=== PATIENT | male | born 1930 | race Caucasian/White ===

== ENCOUNTER 2020-11-06 08:29 | Inpatient (IN) | payer BC, OTHER ==
[~2020-11-06] VITALS: Ht 172.7 cm; Wt 106.7 kg
[2020-11-06] VITALS (15 sets, daily range): BP systolic 80–120; BP diastolic 38–59
[~2020-11-06 08:29] MED LIST: ACTOS 30 MG TAB30 M1 PO; ASPIRIN EC325 M1 PO; FLOMAX0.4 MG PO; LIPITOR40 MG PO; OMEPRAZOLE40 MG PO; PROSCAR 5MG TABL5 MG PO; VITAMIN D310 MCG PO
[2020-11-06 14:21] LABS: HCO3 21.5 mmol/L (22.0-26.0); PCO2 45.1 mmHg (35.0-45.0); PO2 89.9 mmHg (80.0-100.0); pH 7.296 (7.360-7.450)
[2020-11-06 14:57] LABS: HEMATOCRIT 44.3 % (42.0-52.0); HEMOGLOBIN 14.3 gm/dL (14.0-18.0); MCH 30.3 pg (26.0-34.0); MCHC 32.2 g/dL (28.0-37.0); MCV 94.1 fL (80.0-100.0); PLATELET COUNT 108 thou/uL (150-400); RBC 4.71 mil/uL (4.50-6.00); RDW 13.9 % (10.5-14.5); WBC 2.8 thou/uL (4.0-11.0)
[2020-11-06 15:13] LABS: CALCIUM 9.5 mg/dL (8.5-10.1); CREATININE 1.8 mg/dL (0.7-1.3); POTASSIUM 4.2 mmol/L (3.5-5.1); TOTAL BILIRUBIN 1.9 mg/dL (0.2-1.0); TOTAL PROTEIN 6.6 g/dL (6.4-8.2)
[2020-11-06 15:25] LABS: ABSOLUTE NEUTROPHILS 2.4 thou/uL (1.4-8.2)
[2020-11-06 15:26] LABS: POLYCHROMASIA SLIGHT; TEARDROPS FEW
--- NOTE | 2020-11-06 16:29 | NUR ---
PATIENT ARRIVED ON UNIT AT 1531. PATIENT'S BELONGINGS IDENTIFIED AND ACCOUNTED FOR.
--- NOTE | 2020-11-06 16:49 | 2DMMODE ---
[facility] [place] [address] 2 D/M-MODE ECHOCARDIOGRAM Name: ABDULLAHI HUNT Room #: 244-P ADM IN M.R.#: [id number] Admission: 11/06/20 Attend Phys: López Ortiz Discharge: Date of : [birth year] Report #: [id number] THIS REPORT FOR: cc: Daniel Camilo MD, Robert MD Lammoglia, Francisco J. MD ~ APPROVED REPORT Study performed: 11/06/2020 16:12:38 EXAM: Comprehensive 2D, Doppler, and color-flow Echocardiogram Patient Location: ICU Room #: 244 Status: on-call BSA: 2.17 HR: 108 bpm Rhythm: Tachycardia Indications Tachycardia, hypoxia. 2D Dimensions RVDd: 30.97 mm IVSd: 12.53 (7-11mm) LVOT Diam: 23.08 (18-24mm) LVDd: 48.88 mm PWd: 13.08 (7-11mm) Ascending Ao: 38.39 (22-36mm) LVDs: 31.57 (25-40mm) Left Atrium: 40.36 (27-40mm) Aortic Root: 41.65 mm Volumes Left Atrial Volume (Systole) Single Plane 4CH: 63.90 mL Single Plane 2CH: 70.27 mL LA ESV Index: 33.00 mL/m2 Aortic Valve AoV Peak Tejas.: 1.46 m/s AO Peak Gr.: 8.57 mmHg LVOT Max P.66 mmHg LVOT Max V: 1.08 m/s MILAN Vmax: 3.08 cm2 Pulmonary Valve PV Peak Tejas.: 1.21 m/s PV Peak Gr.: 5.83 mmHg [facility] [address] [place] [address] 2 D/M-MODE ECHOCARDIOGRAM Name: ABDULLAHI HUNT Room #: 244-P [facility] IN [facility].#: [id number] Admission: 11/06/20 Attend Phys: López Del Valle Discharge: Date of : [birth year] Report #: [id number] Tricuspid Valve TR Peak Tejas.: 3.06 m/s RAP Estimate: 5.00 mmHg TR Peak Gr.: 37.47 mmHg PA Pressure: 42.00 mmHg Left Ventricle The left ventricle is normal size. There is normal LV segmental wall motion. Mild concentric left ventricular hypertrophy. Left ventricular systolic function is normal. LVEF is 60%. This study is not technically sufficient to allow evaluation of the LV diastolic function. Right Ventricle The right ventricle is normal size. The right ventricular systolic function is normal. Atria The left atrium size is normal. The right atrium size is normal. Aortic Valve The aortic valve is normal in structure. Trace aortic regurgitation. There is no aortic valvular stenosis. Mitral Valve The mitral valve is normal in structure. There is no mitral valve regurgitation noted. No evidence of mitral valve stenosis. Tricuspid Valve The tricuspid valve is normal in structure. Trace tricuspid regurgitation. Estimated PAP is 40-45mmHg. Pulmonic Valve The pulmonary valve is normal in structure. There is no pulmonic valvular regurgitation. Great Vessels Aortic root is mildly dilated (4.2cm). Ascending aorta is borderline dilated. IVC is normal in size and collapses >50% with inspiration. Pericardium There is no pericardial effusion. <Conclusion> [facility] [address] [place] [address] 2 D/M-MODE ECHOCARDIOGRAM Name: ABDULLAHI HUNT Room #: 244-[facility] IN M.R.#: [id number] Admission: 11/06/20 Attend Phys: López Del Valle Discharge: Date of : [birth year] Report #: [id number] The left ventricle is normal size. Mild concentric left ventricular hypertrophy. LVEF is 60%. The right ventricle is normal size. The left atrium size is normal. The aortic valve is normal in structure. Trace aortic regurgitation. The mitral valve is normal in structure. The tricuspid valve is normal in structure. Trace tricuspid regurgitation. Estimated PAP is 40-45mmHg. The pulmonary valve is normal in structure. Aortic root is mildly dilated (4.2cm). Ascending aorta is borderline dilated. There is no pericardial effusion. <ELECTRONICALLY SIGNED> By: Terry Elizabeth MD 11/06/20 1649 48 48 Terry Elizabeth MD /INF
[2020-11-07] VITALS (20 sets, daily range): BP systolic 95–116; BP diastolic 44–65
--- NOTE | 2020-11-07 02:12 | NUR ---
ASSUMED PT CARE AT 1900, PT IS SLEEPY, AWAKE DURING ASSESSMENTS, ALERT ABD ORIENTED, ABLE TO VOICE NEEDS, ASSESSMENTS CHARTED, MEDS GIVEN PER AUG, PTS BP IN THE 80S SYSTOLIC, 500 ML OF NS GIVEN, BP BETTER IN THE 100S SYSTOLIC, DENIES PAIN, REMAINS ON BIPAP, TOLERATING WELL, 02SATS REMAINS STABLE, REMAINS AFEBRILE, NO NEEDS AT THIS TIME, WILL CONTINUE TO MONITOR AND FOLLOW POC
[2020-11-07 04:19] LABS: HEMATOCRIT 35.9 % (42.0-52.0); MCH 30.5 pg (26.0-34.0); MCHC 32.7 g/dL (28.0-37.0); MCV 93.2 fL (80.0-100.0); PLATELET COUNT 95 thou/uL (150-400); RBC 3.85 mil/uL (4.50-6.00); RDW 13.9 % (10.5-14.5)
[2020-11-07 04:30] LABS: HEMOGLOBIN 11.7 gm/dL (14.0-18.0); WBC 27.6 thou/uL (4.0-11.0)
[2020-11-07 04:43] LABS: ALBUMIN 2.5 g/dL (3.4-5.0); CALCIUM 8.8 mg/dL (8.5-10.1); CREATININE 1.8 mg/dL (0.7-1.3); MAGNESIUM 1.9 mg/dL (1.8-2.4); PHOSPHORUS 2.5 mg/dL (2.5-4.9); POTASSIUM 3.8 mmol/L (3.5-5.1); TOTAL BILIRUBIN 1.6 mg/dL (0.2-1.0); TOTAL PROTEIN 5.7 g/dL (6.4-8.2)
[2020-11-07 05:25] LABS: ABSOLUTE NEUTROPHILS 25.1 thou/uL (1.4-8.2); METAMYELOCYTES 2 %; PLATELET ESTIMATE DECREASED
[2020-11-07] MEDS ORDERED: ACTOS 30 MG TAB30 M1 PO (10:00)
--- NOTE | 2020-11-07 14:10 | NUR ---
DR. TORRES CALLED, RE TRANSFER ORDERS. UPDATE GIVEN. DR. MOLINA ROUNDED AND ORTHOSTATIC BPS GOOD.
--- NOTE | 2020-11-07 15:55 | NUR ---
TRANSFER VIA ON . ALL BELONGINGS WITH PT. DENIES PAIN OR SOB.
--- NOTE | 2020-11-07 18:47 | NUR ---
RECEIVED PT TRANSFER FROM ICU. PT AT THE BEDSIDE. PT IS AXOX4, PLEASANT. VSS, AFEBRILE, SR ON MONITOR. PT IS ON 4L VIA NC, WITH BIPAP HS. PT HAS NGUYEN; UP X1 WITH GAIT BELT AND WALKER TO TOILET FOR BM. DID BEDSIDE EDUCATION WITH PT AND ON PLAN OF CARE PT PROGRESSES TOWARDS D/C GOALS. PT AND COMMUNICATED UNDERSTANDING. FALL PRECAUTIONS IN PLACE. NO CONCERNS AT THIS TIME.
[2020-11-08 00:45] VITALS: BP 133/60
[2020-11-08 04:24] LABS: HEMATOCRIT 33.3 % (42.0-52.0); HEMOGLOBIN 10.9 gm/dL (14.0-18.0); MCH 30.5 pg (26.0-34.0); MCHC 32.9 g/dL (28.0-37.0); MCV 92.7 fL (80.0-100.0); PLATELET COUNT 89 thou/uL (150-400); RBC 3.59 mil/uL (4.50-6.00); RDW 13.8 % (10.5-14.5); WBC 27.8 thou/uL (4.0-11.0)
[2020-11-08 04:45] VITALS: BP 126/69
[2020-11-08 04:50] LABS: ALBUMIN 2.7 g/dL (3.4-5.0); CHOLESTEROL 95 mg/dL (<200); DIRECT BILIRUBIN 0.3 mg/dL (<0.1-0.2); HDL CHOLESTEROL 42 mg/dL (>40); LDL CHOLESTEROL 45 mg/dL (<100); LIPASE 69 U/L (73-393); MAGNESIUM 2.2 mg/dL (1.8-2.4); PHOSPHORUS 2.7 mg/dL (2.5-4.9); SGOT 106 U/L (15-37); SGPT 143 U/L (30-65); TC:HDL 2.3 Ratio (Not establshd); TOTAL BILIRUBIN 0.6 mg/dL (0.2-1.0); TOTAL PROTEIN 6.1 g/dL (6.4-8.2); TRIGLYCERIDE 43 mg/dL (<150); VLDL 9 mg/dL (<40)
--- NOTE | 2020-11-08 04:50 | NUR ---
ASSUMED PT CARE AT CHANGE OF SHIFT, ASSESSMENTS CHARTED, DENIES PAIN OR SOB, BIPAP AT NIGHT, TOLERATING WELL, ADEQUATE URINE OUTPUT, MEDS GIVEN PER MAR, NO NEEDS AT THIS TIME, WILL CONTINUE TO MONITOR AND FOLLOW POC
[2020-11-08 04:51] LABS: SERUM ASSESSMENT Clear
[2020-11-08 07:30] VITALS: BP 173/739
[2020-11-08 09:49] LABS: ABSOLUTE NEUTROPHILS 25.9 thou/uL (1.4-8.2)
[2020-11-08 09:50] LABS: ANISOCYTOSIS 1+
[2020-11-08 11:30] VITALS: BP 119/61
[2020-11-08 11:46] LABS: ALBUMIN 2.8 g/dL (3.4-5.0); ANION GAP 9 mmol/L (7-16); BUN 41 mg/dL (7-18); CALCIUM 10.3 mg/dL (8.5-10.1); CHLORIDE 107 mmol/L (98-107); CO2 23 mmol/L (21-32); CREATININE 1.5 mg/dL (0.7-1.3); GLUCOSE 279 mg/dL (74-106); MAGNESIUM 2.2 mg/dL (1.8-2.4); POTASSIUM 4.3 mmol/L (3.5-5.1); SGOT 86 U/L (15-37); SGPT 135 U/L (16-63); SODIUM 139 mmol/L (136-145); TOTAL BILIRUBIN 0.6 mg/dL (0.2-1.0); TOTAL PROTEIN 6.3 g/dL (6.4-8.2); TROPONIN-I <0.06 ng/mL (<0.06)
--- NOTE | 2020-11-08 14:57 | EKG ---
[place] [address] [facility]: [place] [address] ELECTROCARDIOGRAM REPORT Name: ABDULLAHI HUNT Room #: 204-P ADM IN M.R.#: [id number] Admission: 11/06/20 Attend Phys: López Ortiz Discharge: Date of : [birth year] Report #: [id number] [facility] Test Date: 2020-11-06 Test Time: 14:07:13 Pat Name: ABDULLAHI HUNT Department: Room: 204 Gender: M Social Media Assistant: SUNNY : 1930 Requested By: Anne Kruse Order Number: [id number] MD: Karsten Calix Measurements Intervals [place] Rate: 129 P: -48 KS: 78 QRS: -55 QRSD: 122 T: 3 QT: 391 QTc: 573 Interpretive Statements Sinus or ectopic atrial tachycardia Right bundle branch block No previous ECG available for comparison Electronically Signed On 11-08-2020 14:57:25 CDT by Karsten Calix [email or web address] <ELECTRONICALLY SIGNED> By: Karsten Calix MD, [facility] 11/08/20 1457 1407 1407 Karsten Calix MD, FACC /EPI
--- NOTE | 2020-11-08 14:58 | EKG ---
[place] [address] [facility] [place] [address] ELECTROCARDIOGRAM REPORT Name: ABDULLAHI HUNT Room #: 204-P ADM IN M.R.#: [id number] Admission: 11/06/20 Attend Phys: López Ortiz Discharge: Date of : [birth year] Report #: [id number] [facility] Test Date: 2020-11-06 Test Time: 14:28:31 Pat Name: ABDULLAHI HUNT Department: Room: 204 Gender: M Email Engineer: MOLLY : 1930 Requested By: López Miller Order Number: [id number] MD: Karsten Calix Measurements Intervals [place] Rate: 107 P: 151 FL: 224 QRS: -31 QRSD: 133 T: 5 QT: 416 QTc: 555 Interpretive Statements Sinus or ectopic atrial tachycardia Prolonged FL interval Left anterior hemiblock Right bundle branch block Compared to ECG 11/06/2020 14:07:13 Heart rate has slowed Electronically Signed On 11-08-2020 14:58:49 CDT by Karsten Calix [email or web address] <ELECTRONICALLY SIGNED> By: Karsten Calix MD, [facility] 11/08/20 1458 1428 142 Karsten Calix MD, [facility] /EPI
--- NOTE | 2020-11-08 14:59 | EKG ---
[place] [address] [facility] [place] [place] [address] ELECTROCARDIOGRAM REPORT Name: ABDULLAHI HUNT Room #: 204-P ADM IN M.R.#: [id number] Admission: 11/06/20 Attend Phys: López Ortiz Discharge: Date of : [birth year] Report #: [id number] [facility] Test Date: 2020-11-06 Test Time: 14:29:52 Pat Name: ABDULLAHI HUNT Department: Room: 204 Gender: M Electrical Superintendent: MOLLY : 1930 Requested By: López Miller Order Number: [id number] MD: Karsten Calix Measurements Intervals [place] Rate: 107 P: 188 IA: 220 QRS: -33 QRSD: 125 T: 3 QT: 362 QTc: 483 Interpretive Statements Sinus or ectopic atrial tachycardia Prolonged [place] interval Right bundle branch block Possible inferior and lateral infarcts, age indeterminate Compared to ECG 11/06/2020 14:28:31 Inferior Q waves are more prominent Electronically Signed On 11-08-2020 14:59:29 CDT by Karsten Calix [email or web address] <ELECTRONICALLY SIGNED> By: Karsten Calix MD, [facility] 11/08/20 1459 1429 1429 Karsten Calix MD, [facility] /EPI
--- NOTE | 2020-11-08 15:11 | EKG ---
[place] [address] [facility] [place] [address] ELECTROCARDIOGRAM REPORT Name: ABDULLAHI HUNT Room #: 204-P ADM IN M.R.#: [id number] Admission: 11/06/20 Attend Phys: López Ortiz Discharge: Date of : [birth year] Report #: [id number] [facility] Test Date: 2020-11-07 Test Time: 09:39:13 Pat Name: ABDULLAHI HUNT Department: Room: 204 Gender: M Civil Engineering Director: : 1930 Requested By: Juve Perez Order Number: [id number] MD: Karsten Calix Measurements Intervals [place] Rate: 94 P: 10 NM: 242 QRS: -37 QRSD: 135 T: -13 QT: 367 QTc: 459 Interpretive Statements Sinus rhythm Prolonged NM interval Right bundle branch block Inferior infarct, age indeterminate Compared to ECG 11/06/2020 14:29:52 No significant changes Electronically Signed On 11-08-2020 15:11:09 CDT by Karsten Calix [email or web address] <ELECTRONICALLY SIGNED> By: Karsten Calix MD, [facility] 11/08/20 1511 8 Karsten Calix MD, [facility] /EPI
[2020-11-08 15:50] VITALS: BP 129/66
[2020-11-08 19:44] VITALS: BP 135/71
[2020-11-09 04:00] VITALS: BP 125/62
[2020-11-09 04:44] LABS: HEMATOCRIT 32.9 % (42.0-52.0); HEMOGLOBIN 10.8 gm/dL (14.0-18.0); MCH 30.4 pg (26.0-34.0); MCHC 32.7 g/dL (28.0-37.0); MCV 92.9 fL (80.0-100.0); PLATELET COUNT 88 thou/uL (150-400); RBC 3.54 mil/uL (4.50-6.00); RDW 13.7 % (10.5-14.5)
--- NOTE | 2020-11-09 04:50 | NUR ---
SLEPT PART OF SHIFT IN BED WITH BIPAP ON. TOLERATING BIPAP. DENIES COMPLAINTS OF PAIN OR SHORTNESS OF AIR. WORKING ON GOALS AND PLAN OF CARE FOR NOC. NPO FOR POSSIBLE STRESS TEST THIS AM. CONTINUE TO ASSES CLOSELY.
[2020-11-09 05:00] LABS: ALBUMIN 2.6 g/dL (3.4-5.0); CALCIUM 10.1 mg/dL (8.5-10.1); CREATININE 1.3 mg/dL (0.7-1.3); MAGNESIUM 2.4 mg/dL (1.8-2.4); POTASSIUM 4.4 mmol/L (3.5-5.1); TOTAL BILIRUBIN 0.5 mg/dL (0.2-1.0)
[2020-11-09 06:02] LABS: ABSOLUTE NEUTROPHILS 23.9 thou/uL (1.4-8.2); PLATELET ESTIMATE DECREASED
[2020-11-09 07:53] VITALS: BP 126/62
--- NOTE | 2020-11-09 08:24 | NUR ---
CM S/W PT WHO STATED HE LIVES HOME WITH SPOUSE, PT IS RETIRED AND IS EMPLOYEED. PT IS INDEPENDENT W/ADLS, PREPARES HIS OWN BREAKFAST AND LUNCH AND COOKS DINNER. PT USE HOME O2 @ 2L. PT IS ON IV ABX. PT DENIES HX WITH HOME HEALTH. CM TO CONT TO FOLLOW.
[2020-11-09 12:05] VITALS: BP 141/80
--- NOTE | 2020-11-09 12:48 | NUR ---
High nutrition screen for wt loss and poor appetite. S/P ERCP/choledocholithiasis. Pt/ report his wt loss 17 lb was due to isolation year for COVID. reports was planning more of the meals. Pt obese with BMI 36. Anxious to eat lunch, stated hungry. Possible discharge home today. Low nutrition risk
--- NOTE | 2020-11-09 17:35 | NUR ---
PATIENT COMPLETED STRESS TEST THIS SHIFT,SEE CARDIOLOGY PROGRESS NOTES. PATIENT'S WOULD LIKE PATIENT TO DC TO HOME. PATIENT AND PATIENT'S HAS BEEN TALKED TO IN GREAT DETAIL ABOUT POC AND THAT PATIENT IS BEING TREATED WITH ABX. DECREASED FROM 4L NC TO 2L NC PER RESPIRATORY, VSS. AMBULATED SEVERAL TIMES TO BATHROOM, VOIDING WITHOUT ISSUES POST CATHETER REMOVAL.
[2020-11-09 20:00] VITALS: BP 155/80
[2020-11-09 21:37] LABS: HEMATOCRIT 33.4 % (42.0-52.0)
--- NOTE | 2020-11-10 03:53 | NUR ---
UPON INITIAL ASSESSMENT PATIENT HAD COMPLAINTS OF NAUSEA AND INCREASED GAS. NURSE OBTAINED PRN ORDERS FOR ANTI NAUSEA MEDICATIONS. NURSE BROUGHT BACK TO ROOM DUE TO PATIENT VOMITING WHAT PERCEIVED BLOOD. VOMIT APPEARED DARK RED IN COLOR. CALL PLACED TO GI DOCTOR WITH ORDERS RECEIVED FOR STAT H&H WHICH CAME BACK NORMAL. NURSE AND PATIENT RELUCTANT TO PLACE PATIENT ON BIPAP DUE TO VOMITING, AND PATIENTS BREATHING APPEARS STABLE EVIDENCED BY ASSESSMENTS AND CONTINUOUS SATURATION MONITORING. MIDNIGHT INSULIN HELD DUE TO PATIENTS CURRENT ABILITY TO CONSUME PO FOODS/FLUIDS. NURSE TO CONTINUE TO ASSESS.
[2020-11-10 04:00] VITALS: BP 114/70
[2020-11-10 06:01] LABS: HEMATOCRIT 25.9 % (42.0-52.0); MCH 30.2 pg (26.0-34.0); MCHC 32.4 g/dL (28.0-37.0); MCV 93.2 fL (80.0-100.0); PLATELET COUNT 108 thou/uL (150-400); RBC 2.77 mil/uL (4.50-6.00); RDW 14.1 % (10.5-14.5); WBC 22.1 thou/uL (4.0-11.0)
[2020-11-10 06:05] LABS: HEMOGLOBIN 8.4 gm/dL (14.0-18.0)
[2020-11-10 08:35] VITALS: BP 119/62
--- NOTE | 2020-11-10 08:48 | NUR ---
0840- RN PAGED GI DUE TO 2 LARGE DARK BLOODY STOOLS. AWAITING CALL BACK. AT SHIFT CHANGE THIS RN ASSISTED 911 EMERGENCY SERVICES DISPATCHER RN AT 0700 IN CLEANING UP FIRST BOWEL MOVEMENT THAT CONTAINED DARK BLOODY STOOL. AT THAT TIME NIGHT RN CALLED GI AND MADE THEM AWARE OF DARK BLOODY STOOL AND PT WAS MADE STRICT NPO AT THIS TIME WITH PLAN TO POSSIBLY SCOPE TODAY. PT'S HERE AND WAS MADE AWARE OF PT'S 3 DARK BLOODY STOOLS. WILL CHANGE MONITORING BLOOD PRESSURE FROM Q4 HOURS TO HOURLY AND WILL CONTINUE TO CLOSELY MONITOR PT. PT'S VSS AT THIS TIME.
[2020-11-10 08:59] LABS: ABSOLUTE NEUTROPHILS 19.9 thou/uL (1.4-8.2); ANISOCYTOSIS 1+; METAMYELOCYTES 3 %; MYELOCYTES 1 %
[2020-11-10 09:48] VITALS: BP 116/52
--- NOTE | 2020-11-10 10:15 | NUR ---
1010- pt to gi lab for egd. consent signed and on chart. accompanied pt with gi transport.
[2020-11-10 13:35] VITALS: BP 110/60
--- NOTE | 2020-11-10 14:50 | NUR ---
1430- RN SPOKE WITH DR SANTOS AFTER PT RETURNED FROM EGD. WAS INFORMED THAT PT HAS HAD 2 MORE DARK STOOLS POST PRECEDURE. IS AWARE. ORDER FOR H&H GIVEN TO BE DRAWN AT 2100 TONIGHT AND 0500 IN AM. PT STARTED ON CLEAR LIQUID DIET ORDERED.
[2020-11-10 20:52] VITALS: BP 123/58
[2020-11-10 21:30] LABS: HEMATOCRIT 24.1 % (42.0-52.0); HEMOGLOBIN 7.8 gm/dL (14.0-18.0)
[2020-11-11 04:44] LABS: HEMATOCRIT 21.7 % (42.0-52.0); HEMOGLOBIN 7.1 gm/dL (14.0-18.0)
[2020-11-11 04:45] VITALS: BP 133/77
--- NOTE | 2020-11-11 08:15 | P ---
[facility] [place] [address] PROCEDURE REPORT Name: ABDULLAHI HUNT Room #: 204-P ADM IN M.R.#: [id number] Admission: 11/06/20 Attend Phys: Osmany Ceballos MD Discharge: Date of : [birth year] Report #: [id number] THIS REPORT FOR: cc: Daniel Camilo MD, Robert MD [place],López East MD ~ DOC #: [id number] cc: MD López Tomlinson MD DATE OF SERVICE: 11/06/2020 PROCEDURE PERFORMED: ERCP with sphincterotomy, stone removal and stent placement. HISTORY OF PRESENT ILLNESS: The patient is an 89-year-old male who was seen by myself in the office for the first time on 09/17/2020 for elevated liver function tests and abnormal ultrasound. He has a history of intermittent elevated liver function tests over the years. He had a previous cholecystectomy in 1995. He had previous episodes of diverticulitis in the past. He has had intermittent fevers and chills at times, thought to be due to diverticulitis. He underwent an ultrasound of the abdomen on 09/08/2020, showed fatty liver changes, previous cholecystectomy changes. Bile ducts were dilated with the extrahepatic duct being 21 mm in diameter. Also noted were internal echoes and possible shadowing. This may be secondary to common bile duct stone. We, therefore, decided to proceed with an MRCP of the abdomen done on 10/06/2020. This showed multiple signal voids throughout the dilated extrahepatic bile duct extending to the level of the confluence of the right and left intrahepatic bile ducts consistent with retained bile duct stones. Associated intrahepatic bile duct dilation most prominent on the left lobe of the liver, apparent beading of the intrahepatic ducts, left more prominent. The right raises a possibility of superimposed sclerosing cholangitis. I had a long discussion with the patient and his family in the office again on 10/13/2020 and we discussed possibly proceeding with an ERCP. He is here today for ERCP scheduled as an outpatient. DESCRIPTION OF PROCEDURE: The risks and benefits of the procedure were explained to the patient and his family, those risks including but not limited to bleeding, perforation and the risk of sedation as well as the potential risk for post-ERCP pancreatitis. He understood these risks and gave informed consent. The procedure was performed in the operating room under general anesthesia. The patient was given 2 grams of Ancef prior to the procedure as well as 50 mg indomethacin rectal suppository. Next, using a standard Olympus ERCP side-viewing scope, the scope was placed in the patient's mouth and advanced under direct vision through the esophagus, stomach and into the second portion of the duodenum, at which point the major papilla was identified. Just above the papilla was a diverticulum, but did not involve directly the major [address] [address] PROCEDURE REPORT Name: ABDULLAHI HUNT Room #: 204-P [facility] IN M.R.#: [id number] Admission: 11/06/20 Attend Phys: Osmany Ceballos MD Discharge: Date of : [birth year] Report #: [id number] papilla. Next, using a Azam-Cook 0.025 DomeTip sphincterotome catheter, the common bile duct was cannulated without difficulty and a cholangiogram was obtained. There were multiple large filling defects consistent with common bile duct stones within a very dilated common bile duct at approximately 20 mm. There was approximately 15-20 plus stones noted packed throughout the duct. The intrahepatic ducts were slightly dilated as well. At this point, I performed a large sphincterotomy without difficulty. A guidewire was advanced into the intrahepatic ducts. I spent approximately an hour and a half with a combination of balloon and basket catheters trying to retrieve all the stones. Because of the size of the stones and how they were packed in, it was very difficult. I was able to crush some of the stones and remove some of the stones, however, approximately 70% of the stones remained after this period of time. I even extended the sphincterotomy at one point. It was obvious at this point, I was not going to be able to clear the entire duct at this time. I therefore proceeded with placing two 5-[place] 7 cm double pigtail stents without difficulty. There was good drainage noted from the stents at this point. There was also good drainage noted from the contrast dye from the common bile duct. At this point, the scope was then withdrawn and the procedure terminated. The patient tolerated the procedure well. IMPRESSION: Very dilated common bile duct at 20 mm with numerous stones noted throughout the entire duct as described above despite sphincterotomy and multiple attempts with removal with balloon and wire basket, only a portion of the stones were able to be removed today. RECOMMENDATIONS: 1. Observe the patient post-procedure. 2. Would recommend starting ursodiol in the near future. Repeating ERCP in several months, at that time, hopefully with the stents and ____, this will help break down part of the stones and make them softer and will be hopefully more able to be removed at that time. Thank you for allowing me to participate in his care. ADDENDUM: The patient tolerated the procedure well, however, in the recovery room began having chills and desaturation and will explain further details in HPI on consult. The patient will be admitted for further workup. López Miller MD [facility] [address] [place] [address] PROCEDURE REPORT Name: ABDULLAHI HUNT Room #: 204-P ADM IN M.R.#: [id number] Admission: 11/06/20 Attend Phys: Osmany Ceballos MD Discharge: Date of : [birth year] Report #: [id number] <ELECTRONICALLY SIGNED> By: López Miller MD 11/11/20 0815 1357 37 López Miller MD /nt
--- NOTE | 2020-11-11 08:15 | HC ---
[facility] [address] CONSULTATION Name: ABDULLAHI HUNT Room #: 204-P ADM IN M.R.#: [id number] Admission: 11/06/20 Attend Phys: Osmany Ceballos MD Discharge: Date of : [birth year] Report #: [id number] THIS REPORT FOR: cc: Daniel Camilo MD, Robert MD McElhin[place],López East MD ~ DOC #: [id number] cc: Larissa Eden MD, Al Jackson MD, Juve Perez MD, Daniel Miller MD HISTORY OF PRESENT ILLNESS: The patient is an 89-year-old male who was evaluated by myself for the first time in the office on 09/17/2020, that time was being seen for elevated liver function tests as well as abnormal ultrasound of the abdomen. He also has been having intermittent abdominal pain at times. He has had previous histories of fevers and chills, thought to be secondary to diverticulitis, has been treated typically one to two times per year with Cipro, which resolved his symptoms. He had a previous cholecystectomy in 1995. He underwent an ultrasound of the abdomen on 09/08/2020, which showed gallbladder being surgically absent. The common bile duct was dilated at 21 mm. Internal echoes in the extrahepatic ducts were seen. Questionable shadowing. These may be stones within the bile duct. I had a long discussion with the patient and his family that day and we decided to proceed with an MRI of the abdomen, which was performed on 10/06/2020. This showed again a significantly dilated common bile duct with multiple filling defects consistent with common bile duct stones as well as apparent beading of the intrahepatic ducts left more prominent than right, raising the possibility of superimposed colitis and cholangitis. I had a long discussion with the patient again and his family on 10/13/2020 regarding options including possible ERCP, which she presented for today as an outpatient. Prior to the procedure, was denying any abdominal pain. No fevers or chills. He underwent ERCP today in the OR under general anesthesia. He was given 2 grams of Ancef prior to the procedure as well as 50 mg rectal indomethacin suppository. ERCP showed multiple filling defects, and a significantly dilated common bile duct at 20 mm. I performed a large sphincterotomy despite working for approximately an hour and a half to 2 hours. I was able to remove some of the stones; however, due to the size and the number of stones involved eventually I decided to place 2 double pigtail stents, good drainage was noted after stent placement. The patient tolerated the procedure well in the OR; however, in the recovery room after the patient was extubated, he began having more increasing shortness of breath and chills. He remained afebrile during this time. He was given a breathing treatment. Chest x-ray showed cardiomegaly, peripheral moderate interstitial infiltrates, possibly chronic fibrotic change, possible mass was seen in the right lung and the left lung infiltrates of uncertain chronicity. The patient began becoming more tachycardic. Blood pressure remained stable. At this time, it was obvious the [facility] [address] [place] [address] CONSULTATION Name: ABDULLAHI HUNT Room #: 204-P ADM IN M.R.#: [id number] Admission: 11/06/20 Attend Phys: Osmany Ceballos MD Discharge: Date of : [birth year] Report #: [id number] patient was needed to be admitted for further evaluation. Dr. Larissa Eden consulted on hospitalist side, Dr. Perez from cardiology has been consulted, pulmonary also consulted. Plan is to admit the patient to ICU for further evaluation. He was given some steroids as well as pain medications. His vital signs did improve at this point. Labs have been ordered, but are pending at this time. 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 PAST SURGICAL HISTORY: Previous cataract surgery, history of diverticulitis, osteoarthritis, previous history of pneumonia. MEDICATIONS: On admission, omeprazole 40 mg every day, Actos 30 mg, Flomax, finasteride 5 mg, atorvastatin 40 mg, aspirin 325, which has been held for the last few days, vitamin D, fish oil. ALLERGIES: PENICILLIN. SOCIAL HISTORY: Denies any tobacco or alcohol use currently. FAMILY HISTORY: Positive for colon cancer in his mother. PHYSICAL EXAMINATION: VITAL SIGNS: In the recovery room, temperature was 99.2, pulse at one point was tacking in the upper 120s, more recently has been 106, blood pressure has been stable 114/85, O2 sats initially had dropped into the 80s. He is currently 93% on a facemask, respiratory rate 16. GENERAL: He was chilling at one point, he has improved at this point, he is alert and denies any abdominal pain, only complaint is back pain at this time. CARDIOVASCULAR: Regular rhythm, tachycardic. CHEST: Decreased breath sounds bilaterally. ABDOMEN: Soft, he is nontender, nondistended. EXTREMITIES: No cyanosis, clubbing or edema. LABORATORY DATA: Pending. ASSESSMENT AND PLAN: Common bile duct stone, status post ERCP today as described above with stent placement, unable to remove all common bile duct stones today. Post-procedure, the patient in the recovery room, began having chills, became more hypoxic and tachycardic. Plan is for admission for further evaluation. Chest x-ray was just performed. Cardiology, pulmonary and hospitalist has been consulted. He has received a breathing treatment with some [facility] [address] [place] [address] CONSULTATION Name: ABDULLAHI HUNT Room #: 204-P ADM IN M.R.#: [id number] Admission: 11/06/20 Attend Phys: Osmany Ceballos MD Discharge: Date of : [birth year] Report #: [id number] IV steroids. EKGs have been performed. Other labs are pending at this time. We will continue to monitor his liver function test. We will also order a lipase to rule out the possibility of pancreatitis. Thank you for allowing me to participate in his care. López Miller MD [facility] <ELECTRONICALLY SIGNED> By: López Miller MD 11/11/20 0815 1412 27 López Miller MD /nt
[2020-11-11 08:49] VITALS: BP 138/78
[2020-11-11 09:36] LABS: MCH 29.9 pg (26.0-34.0); MCHC 31.7 g/dL (28.0-37.0); MCV 94.2 fL (80.0-100.0); RBC 2.35 mil/uL (4.50-6.00); RDW 14.3 % (10.5-14.5); WBC 19.1 thou/uL (4.0-11.0)
[2020-11-11 12:00] VITALS: BP 147/68
[2020-11-11 13:10] LABS: HEMATOCRIT 22.8 % (42.0-52.0); HEMOGLOBIN 7.5 gm/dL (14.0-18.0)
[2020-11-11 15:59] VITALS: BP 113/59
[2020-11-11 20:15] VITALS: BP 108/54; BP 196/92
[2020-11-12 04:45] VITALS: BP 117/57
[2020-11-12 04:57] LABS: HEMOGLOBIN 6.5 gm/dL (14.0-18.0)
[2020-11-12 04:59] LABS: MCHC 33.4 g/dL (28.0-37.0); PLATELET COUNT 120 thou/uL (150-400); RBC 2.09 mil/uL (4.50-6.00); RDW 13.7 % (10.5-14.5); WBC 20.1 thou/uL (4.0-11.0)
[2020-11-12 05:05] LABS: ALBUMIN 2.1 g/dL (3.4-5.0); CALCIUM 9.3 mg/dL (8.5-10.1); CREATININE 1.1 mg/dL (0.7-1.3); MAGNESIUM 2.2 mg/dL (1.8-2.4); POTASSIUM 4.6 mmol/L (3.5-5.1); TOTAL BILIRUBIN 0.4 mg/dL (0.2-1.0); TOTAL PROTEIN 4.7 g/dL (6.4-8.2)
[2020-11-12 05:16] LABS: HEMATOCRIT 19.4 % (42.0-52.0)
[2020-11-12 08:15] VITALS: BP 126/58
[2020-11-12 09:22] LABS: ABSOLUTE NEUTROPHILS 18.1 thou/uL (1.4-8.2); NUCLEATED RBCS 1 /100WBC; PLATELET ESTIMATE NORMAL
[2020-11-12 10:49] VITALS: BP 122/48; BP 126/56
--- NOTE | 2020-11-12 11:40 | NUR ---
Followup: reports pt drinks Premier protein at home and would like pt to have 1 in afternoon. Will send comparable supplement ensure max on lunch tray.
[2020-11-12 14:39] LABS: HEMATOCRIT 23.8 % (42.0-52.0); HEMOGLOBIN 7.7 gm/dL (14.0-18.0)
[2020-11-12 16:02] VITALS: BP 129/69
--- NOTE | 2020-11-12 18:19 | NUR ---
1 UNIT TRBC TRANSFUSED THIS SHIFT. TOLERATED WELL PER PT. HGB 7.7 FOLLOWING TRANSFUSION. SEEN BY PT TODAY. DID REQUIRE 1LITER 02 TO ALLOW PT TO RECOVER FROM ACTIVITY. 1700 MODERATE SOFT BM WITH MAROON TINGE.
[2020-11-12 18:35] LABS: URINE BILIRUBIN NEGATIVE (Negative); URINE BLOOD NEGATIVE (Negative); URINE CLARITY CLEAR; URINE COLOR YELLOW; URINE GLUCOSE-RANDOM* TRACE (Negative); URINE KETONES NEGATIVE (Negative); URINE LEUKOCYTES-REFLEX NEGATIVE (Negative); URINE NITRITE-REFLEX NEGATIVE (Negative); URINE PROTEIN (DIPSTICK) NEGATIVE (Negative); URINE UROBILINOGEN 0.2 E.U./dl (0.2-1.0)
[2020-11-12 20:07] VITALS: BP 121/55
[2020-11-13 04:11] VITALS: BP 135/64
[2020-11-13 08:08] LABS: HEMATOCRIT 22.8 % (42.0-52.0); HEMOGLOBIN 7.4 gm/dL (14.0-18.0); MCH 30.2 pg (26.0-34.0); MCHC 32.7 g/dL (28.0-37.0); MCV 92.2 fL (80.0-100.0); RBC 2.47 mil/uL (4.50-6.00); RDW 14.1 % (10.5-14.5); WBC 15.1 thou/uL (4.0-11.0)
[2020-11-13 08:19] LABS: CALCIUM 9.3 mg/dL (8.5-10.1); CREATININE 1.2 mg/dL (0.7-1.3); MAGNESIUM 2.2 mg/dL (1.8-2.4); POTASSIUM 4.3 mmol/L (3.5-5.1)
--- NOTE | 2020-11-13 09:08 | NUR ---
ASSUMED PT CARE AT 0700, AT 0850, ASSESSMENT PERFORMED CHARTED. VSS. PT SITTING UP IN THE CHAIR EATING BREAKFAST WITH AT BEDSIDE. PT VOICES NO CONCERNS AT THIS TIME. WILL CONTINUE TO MONITOR AND FOLLOW POC.
[2020-11-13 09:47] VITALS: BP 145/60
--- NOTE | 2020-11-13 11:32 | NUR ---
[facility] has evaluated and visited with the pt and his . They can accept him pending insurance approval and GI clearance. Hgb stable this am 7.4 after a unit of blood yesterday. Repeat lab ordered this afternoon. The [facility] liason will submit for ins auth for dc to rehab today or tomorrow. All parties updated and case discussed in team rounds.
[2020-11-13 11:37] VITALS: BP 140/70
--- NOTE | 2020-11-13 11:58 | NUR ---
PT SLEEPING IN CHAIR, VSS. PTS NOON ASSESSMENT UNCHANGED. WILL CONTINUE TO MONITOR AND FOLLOW POC.
[2020-11-13 13:40] LABS: HEMATOCRIT 23.9 % (42.0-52.0); MCH 30.8 pg (26.0-34.0); MCHC 33.2 g/dL (28.0-37.0); MCV 92.7 fL (80.0-100.0); RBC 2.58 mil/uL (4.50-6.00); RDW 13.9 % (10.5-14.5)
--- NOTE | 2020-11-13 13:43 | NUR ---
PER INSURANCE CO. PT OUT OF NETWORK. COST TO PT FOR OON WOULD BE 30% PLUS DEDUCTIBLE. IN NETWORK IS COVERED 100% AND NO DEDUCTIBLE. CM AWARE AND WILL CONVEY TO PT. IF PT CONSIDERS [facility] WITH EXTRA COST, DONOVAN Carr IS [facility] [phone]
[2020-11-13 15:51] VITALS: BP 140/70
--- NOTE | 2020-11-13 15:52 | NUR ---
PTS ASSESSMENT UNCHANGED. VSS. PT WANTED CONDOM CATHETER OFF DUE TO WANTING TO WALK MORE TO THE BATHROOM. WILL CONTINUE TO MONITOR AND FOLLOW POC. PT HAD A LONG WALK WITH PT WITH MIN ASSIST.
[2020-11-13 16:00] VITALS: BP 120/68
[2020-11-13 19:50] VITALS: BP 125/50
[2020-11-14 03:37] LABS: HEMOGLOBIN 7.6 gm/dL (14.0-18.0); MCH 31.9 pg (26.0-34.0); MCHC 34.5 g/dL (28.0-37.0); MCV 92.4 fL (80.0-100.0); RBC 2.38 mil/uL (4.50-6.00); RDW 14.2 % (10.5-14.5); WBC 12.1 thou/uL (4.0-11.0)
[2020-11-14 03:51] LABS: CALCIUM 9.8 mg/dL (8.5-10.1); CREATININE 1.1 mg/dL (0.7-1.3); MAGNESIUM 2.2 mg/dL (1.8-2.4); POTASSIUM 4.7 mmol/L (3.5-5.1)
[2020-11-14 04:00] VITALS: BP 144/67
--- NOTE | 2020-11-14 05:56 | NUR ---
PT CARE ASSUMED AT 1900, PT IS UP TO THE CHAIR WATCHING BASEBALL ON HIS LAPTOP, IN THE ROOM, ASSESSMENTS COMPLETED AND CHARTED, SR/AVB/BBB ON TELE, MEDS GIVEN PER MAR, DENIES CONCERNS, SLEPT WELL, WILL PASS ON REPORT
[2020-11-14 07:39] VITALS: BP 116/55
[2020-11-14 08:38] LABS: % SATURATION 25 % (20-39); IRON 39 ug/dL (65-175); TIBC 159 ug/dL (250-450)
--- NOTE | 2020-11-14 09:13 | NUR ---
ASSUMED PT CARE AT 0700, PT SITTING UP EATING BREAKFAST, PTS AT BEDSIDE. ASSESSMENT PERFORMED CHARTED. VSS. WILL CONTINUE TO MONITOR AND FOLLOW POC.
[2020-11-14 11:10] VITALS: BP 117/48
[2020-11-14 12:16] LABS: HEMATOCRIT 23.6 % (42.0-52.0); HEMOGLOBIN 7.8 gm/dL (14.0-18.0); MCH 30.8 pg (26.0-34.0); MCV 93.6 fL (80.0-100.0); RBC 2.53 mil/uL (4.50-6.00); RDW 14.2 % (10.5-14.5); WBC 15.2 thou/uL (4.0-11.0)
--- NOTE | 2020-11-14 13:27 | NUR ---
ATTEMPTED REPORT X2 AT 1325 TO [facility]. WILL CONTINUE TO MONITOR AND FOLLOW POC.
[2020-11-14] MEDS ORDERED: URSODIOL300 MG PO (14:28)
[2020-11-14 15:06] LABS: HEMATOCRIT 23.3 % (42.0-52.0); HEMOGLOBIN 7.6 gm/dL (14.0-18.0); MCH 30.5 pg (26.0-34.0); MCHC 32.7 g/dL (28.0-37.0); MCV 93.3 fL (80.0-100.0); RBC 2.5 mil/uL (4.50-6.00); RDW 14.3 % (10.5-14.5)
[2020-11-14 15:18] VITALS: BP 118/55
--- NOTE | 2020-11-14 17:13 | NUR ---
home health confirmed they have received the information and pt is okay to be d/c.
[2020-11-15 05:36] LABS: GLYCOHEMOGLOBIN (HGB A1C) 6.5 % (4.8-5.6)
== END 2020-11-14 17:51 | disposition home health service (06) | DRG 871 ==
LOC: GI 08:29 → 2N 16:23 → ICU 16:23 → 2N 11-07 16:02
PROVIDERS: Internal Medicine; Internal Medicine Gastroenterology; Nurse Practitioner; Nurse Practitioner Family; Student in an Organized Health Care Education/Training Program; ADMIT Internal Medicine; ATTEND Internal Medicine
PROC: BF101ZZ Fluoroscopy of Bile Ducts using Low Osmolar Contrast (ICD-10-PCS; principal; 2020-11-06)
PROC: 5A0935A Assistance with Respiratory Ventilation, Less than 24 Consecutive Hours, High Flow/Velocity Cannula (ICD-10-PCS; principal; 2020-11-06)
PROC: 0F798DZ Dilation of Common Bile Duct with Intraluminal Device, Via Natural or Artificial Opening Endoscopic (ICD-10-PCS; principal; 2020-11-06)
PROC: 5A09357 Assistance with Respiratory Ventilation, Less than 24 Consecutive Hours, Continuous Positive Airway Pressure (ICD-10-PCS; principal; 2020-11-06)
PROC: 0FC98ZZ Extirpation of Matter from Common Bile Duct, Via Natural or Artificial Opening Endoscopic (ICD-10-PCS; principal; 2020-11-06)
PROC: 5A0935A Assistance with Respiratory Ventilation, Less than 24 Consecutive Hours, High Flow/Velocity Cannula (ICD-10-PCS; 2020-11-07)
PROC: 5A09357 Assistance with Respiratory Ventilation, Less than 24 Consecutive Hours, Continuous Positive Airway Pressure (ICD-10-PCS; 2020-11-07)
PROC: 5A09357 Assistance with Respiratory Ventilation, Less than 24 Consecutive Hours, Continuous Positive Airway Pressure (ICD-10-PCS; 2020-11-08)
PROC: 0W3P8ZZ Control Bleeding in Gastrointestinal Tract, Via Natural or Artificial Opening Endoscopic (ICD-10-PCS; 2020-11-10)
PROC: 30233N1 Transfusion of Nonautologous Red Blood Cells into Peripheral Vein, Percutaneous Approach (ICD-10-PCS; 2020-11-12)
DX: A41.9 Sepsis, unspecified organism (principal); J96.21 Acute and chronic respiratory failure with hypoxia; J96.22 Acute and chronic respiratory failure with hypercapnia; J84.9 Interstitial pulmonary disease, unspecified; E46 Unspecified protein-calorie malnutrition; K92.1 Melena; N40.0 Benign prostatic hyperplasia without lower urinary tract symptoms; E78.5 Hyperlipidemia, unspecified; K21.9 Gastro-esophageal reflux disease without esophagitis; I12.9 Hypertensive chronic kidney disease with stage 1 through stage 4 chronic kidney disease, or unspecified chronic kidney disease; E11.22 Type 2 diabetes mellitus with diabetic chronic kidney disease; N18.9 Chronic kidney disease, unspecified; I07.1 Rheumatic tricuspid insufficiency; K80.50 Calculus of bile duct without cholangitis or cholecystitis without obstruction; G89.29 Other chronic pain; F17.210 Nicotine dependence, cigarettes, uncomplicated; M54.9 Dorsalgia, unspecified; D64.9 Anemia, unspecified; K64.9 Unspecified hemorrhoids; G47.33 Obstructive sleep apnea (adult) (pediatric); Z20.822 Contact with and (suspected) exposure to COVID-19; Z68.35 Body mass index [BMI] 35.0-35.9, adult; Z90.49 Acquired absence of other specified parts of digestive tract; Z79.82 Long term (current) use of aspirin; Z79.899 Other long term (current) drug therapy; Z86.73 Personal history of transient ischemic attack (TIA), and cerebral infarction without residual deficits; Z88.1 Allergy status to other antibiotic agents; Z88.0 Allergy status to penicillin; Z88.8 Allergy status to other drugs, medicaments and biological substances; Z72.89 Other problems related to lifestyle
CPT/HCPCS: 10078; 10081; 62110; 62900; 70005